=== PATIENT | male | born 1985 | race Caucasian/White ===

== ENCOUNTER → 2018-03-13 | Day surgery (SDC) | payer OTHER ==
[2018-03-13] MEDS: LIDOCAINE 1%/EPI 1:100,000 20 ML VIAL. INJ (08:15)
== END ==
LOC: SURG 11:51
DX: L72.9 Follicular cyst of the skin and subcutaneous tissue, unspecified (principal); L08.89 Other specified local infections of the skin and subcutaneous tissue; L92.8 Other granulomatous disorders of the skin and subcutaneous tissue; Z98.890 Other specified postprocedural states; Z72.89 Other problems related to lifestyle
CPT/HCPCS: 11423; 88305; J3490